=== PATIENT | male | born 1960 | race Caucasian/White ===

== ENCOUNTER 2017-07-13 01:05 | Emergency (ER) | payer OTHER ==
[~2017-07-13] VITALS: Ht 180.3 cm; Wt 73.1 kg
[~2017-07-13 01:05] MED LIST: ASPI325T17 PO; BUDE10.2 INH; CLON2TAB16 PO; GABA-827 PO; IPRA4AER INH; MIRT7.5T8 PO; MORP30TA14 PO; MORP30TA3 PO
[2017-07-13 02:03] LABS: HEMATOCRIT 45.5 % (39.2-51.8); HEMOGLOBIN 15.6 g/dL (13.7-18.0); WHITE BLOOD COUNT 14.5 x10^3/uL (3.4-10)
[2017-07-13 02:16] LABS: BLOOD UREA NITROGEN 7 mg/dL (7-18)
[2017-07-13] MEDS ORDERED: BUDE10.2 INH (02:29)
[2017-07-13] MEDS ORDERED: BACL20TA PO (02:30)
[2017-07-13] MEDS ORDERED: DIPH,PERTUSS(ACELL),TET VAC/PF 0.5 ML IM-VACC ONE ×2 (03:30→03:33)
[2017-07-13 03:45] VITALS: BP 114/71
== END 2017-07-13 03:48 | disposition home or self-care (01) ==
LOC: ED 01:59
DX: S01.91XA Laceration without foreign body of unspecified part of head, initial encounter (principal); S06.0X0A Concussion without loss of consciousness, initial encounter; J44.9 Chronic obstructive pulmonary disease, unspecified; X58.XXXA Exposure to other specified factors, initial encounter; Y93.89 Activity, other specified; Y92.009 Unspecified place in unspecified non-institutional (private) residence as the place of occurrence of the external cause; Y99.8 Other external cause status
CPT/HCPCS: 12011; 36415; 70450; 72125; 72170; 80048; 80307; 82040; 85025; 90471; 90715; G0479